=== PATIENT | female | born 1975 | race Hispanic/Latino ===

== ENCOUNTER 2018-03-05 07:58 | Emergency (ER) | payer BC, OTHER ==
--- NOTE | 2018-03-05 09:02 | ED PDOC ---
HPI: SOB/CHF/COPD Time Seen by Provider: 03/05/18 08:11 Chief Complaint (Nursing): Shortness Of Breath Chief Complaint (Provider): Shortness Of Breath History Per: Patient History/Exam Limitations: no limitations Onset/Duration Of Symptoms: Hrs (x 1) Current Symptoms Are (Timing): Still Present Quality: Tightness Additional Complaint(s): 42 year old (ega 28 weeks) female presents to the ED with chest tightness associated with difficulty breathing and a headache since yesterday. Patient reports she has been congested and has intermittent leg swelling since the beginning of her . In the last month, she gets winded very easily and finds it difficult to catch her breath after. The patient also complains of mild vision changes when she is looking at her computer screen and has to wear her glasses more often. She visits her doctor once a month. Recently, she had blood work done which was unremarkable and negative for diabetes. Patient feels as symptoms are making her commute to work difficult and inhibiting her from no rmal activities. Denies fever, cough and phlegm. PMD: non [facility] provider (in [place]) - Risk Factors PE Risk Factors: Pos: Past Medical History Reviewed: Historical Data, Nursing Documentation, Vital Signs Vital Signs: Last Vital Signs Temp 98.3 F 03/05/18 08:17 Pulse 88 03/05/18 08:17 Resp 20 03/05/18 08:23 BP 133/66 03/05/18 08:17 Pulse Ox 100 03/05/18 08:23 - Medical History PMH: Depression - Surgical History Other surgeries: gastric sleeve (3 years ago) - Family History Family History: States: Unknown Family Hx - Allergies Allergies/Adverse Reactions: Allergies Allergy/AdvReac Type Severity Reaction Status Date / Time Penicillins Allergy RASH Verified 03/05/18 08:14 Sulfa (Sulfonamide Allergy RASH Verified 03/05/18 08:14 Antibiotics) Review of Systems ROS Statement: Except As Marked, All Systems Reviewed And Found Negative Cardiovascular: Positive for: Chest Pain (tightness) Respiratory: Positive for: Shortness of Breath, SOB with Exertion. Negative for: Hemoptysis, Sputum Physical Exam - Reviewed Nursing Documentation Reviewed: Yes Vital Signs Reviewed: Yes - Physical Exam Appears: Positive for: Non-toxic, No Acute Distress Head Exam: Positive for: ATRAUMATIC, NORMAL INSPECTION, NORMOCEPHALIC Skin: Positive for: Normal Color, Warm, Dry Eye Exam: Positive for: EOMI, Normal appearance, PERRL Neck: Positive for: Normal, Painless ROM, Supple Cardiovascular/Chest: Positive for: Regular Rate, Rhythm. Negative for: Murmur Respiratory: Positive for: Normal Breath Sounds. Negative for: Respiratory Distress Gastrointestinal/Abdominal: Positive for: Normal Exam, Soft. Negative for: Tenderness Back: Positive for: Normal Inspection. Negative for: L CVA Tenderness, R CVA Tenderness Extremity: Positive for: Normal ROM. Negative for: Deformity Neurologic/Psych: Positive for: Alert, Oriented (x 3). Negative for: Motor/Sensory Deficits - Laboratory Results Result Diagrams: 03/05/18 08:55 03/05/18 08:55 - ECG O2 Sat by Pulse Oximetry: 100 (RA) Pulse Ox Interpretation: Normal Medical Decision Making Medical Decision Makin:54 Impression: shortness of breath Initial Plan: --CMP --CBC --EKG --PTT --Prothrombin --CXR --UA Scribe Attestation: Documented by Melia Prescott, acting as a scribe for Kaila Tafoya MD Provider Scribe Attestation: All medical record entries made by the Scribe were at my direction and personally dictated by me. I have reviewed the chart and agree that the record accurately reflects my personal performance of the history, physical exam, medical decision making, and the department course for this patient. I have also personally directed, reviewed, and agree with the discharge instructions and disposition. patient is feeling better. labs normal. BP stable. Disposition - Clinical Impression Clinical Impression: Fatigue during in third trimester - Patient ED Disposition Is Patient to be Admitted: No Doctor Will See Patient In The: Office Counseled Patient/Family Regarding: Diagnosis, Need For Followup - Disposition Disposition: Routine/Home Disposition Time: 11:10 Condition: STABLE Additional Instructions: Followup with your personal physician. Return to the ER if symptoms are worse or persistent. Instructions: Symptoms Forms: [facility] (Malay), [facility] ED School/Work Excuse - POA Present On Arrival: None
[2018-03-05 09:15] LABS: BASO % 0.3 % (0.0-2.0); EOS % 0.3 % (0.0-4.0); HEMOGLOBIN 10.5 g/dL (12.0-16.0); LYMPH # 1.8 K/uL (1.0-4.3); LYMPH % 15.3 % (20.0-40.0); MEAN CELL VOLUME 72.9 fl (81.0-99.0); MEAN CORPUSCULAR HEMOGLOBIN 23.8 pg (27.0-31.0); MEAN CORPUSCULAR HGB CONC 32.6 g/dL (33.0-37.0); MEAN PLATELET VOLUME 7.6 fl (7.2-11.7); MONO # 0.6 K/uL (0.0-0.8); MONO % 4.7 % (0.0-10.0); NEUT # 9.5 K/uL (1.8-7.0); NEUT % 79.4 % (50.0-75.0); RBC 4.4 Mil/uL (3.80-5.20); RED CELL DISTRIBUTION WIDTH 14.1 % (11.5-14.5); WHITE BLOOD COUNT 11.9 K/uL (4.8-10.8)
[2018-03-05 09:18] LABS: SQUAMOUS EPITHIAL 18 /hpf (0-5); URINE BILIRUBIN NEGATIVE (NEGATIVE); URINE BLOOD NEGATIVE (NEGATIVE); URINE CLARITY CLOUDY (Clear); URINE COLOR YELLOW (YELLOW); URINE GLUCOSE (UA) NEG (Normal); URINE LEUKOCYTE ESTERASE NEG Leu/uL (Negative); URINE PROTEIN NEGATIVE (NEGATIVE); URINE UROBILINOGEN 0.2-1.0 mg/dL (0.2-1.0)
[2018-03-05 09:19] LABS: PROTHROMBIN TIME 11.6 Seconds (9.8-13.1)
[2018-03-05 09:22] LABS: PARTIAL THROMBOPLASTIN TIME 26.2 Seconds (25.6-37.1)
[2018-03-05 09:27] LABS: ALBUMIN 3.4 g/dL (3.5-5.0); ALT/SGPT 20 U/L (9-52); AST/SGOT 19 U/L (14-36); BLOOD UREA NITROGEN 4 mg/dl (7-17); CALCIUM 9.6 mg/dL (8.4-10.2); GFR NON-AFRICAN AMERICAN > 60
[2018-03-05 11:45] VITALS: BP 136/72; PULSE 84; RESP 18; TEMP 97.8; O2SAT 99
--- NOTE | 2018-03-05 12:35 | CARD ---
APPROVED REPORT Date of service: 03/05/2018 EKG Measurement Heart [id number] <Conclusion> Normal sinus rhythm Normal ECG
== END 2018-03-05 11:35 | disposition home or self-care (01) ==
LOC: H.ER 07:58
DX: O26.813 Pregnancy related exhaustion and fatigue, third trimester (principal)

== ENCOUNTER → 2018-05-03 | Emergency (ER) | payer BC, OTHER ==
[2018-05-03 05:13] VITALS: BMI 41.9
[2018-05-03] MEDS: Lactated Ringer's 1,000 ML IV SCH ×2 (05:48→06:20)
[2018-05-03 05:57] LABS: ALBUMIN 3.6 g/dL (3.5-5.0); ALT/SGPT 15 U/L (9-52); AMYLASE 89 U/L (30-110); AST/SGOT 28 U/L (14-36); BLOOD UREA NITROGEN 12 mg/dl (7-17); CALCIUM 8.4 mg/dL (8.4-10.2); GFR NON-AFRICAN AMERICAN > 60; LIPASE 148 U/L (23-300)
[2018-05-03 06:39] LABS: HEMOGLOBIN 11.1 g/dL (12.0-16.0); MEAN CELL VOLUME 68.8 fl (81.0-99.0); MEAN CORPUSCULAR HEMOGLOBIN 22.1 pg (27.0-31.0); MEAN CORPUSCULAR HGB CONC 32.1 g/dL (33.0-37.0); RBC 5.04 Mil/uL (3.80-5.20); RED CELL DISTRIBUTION WIDTH 16.1 % (11.5-14.5); WHITE BLOOD COUNT 17.8 K/uL (4.8-10.8)
--- NOTE | 2018-05-03 09:05 | OBDCSUM ---
Datetime: 05/03/2018 08:56 Discharged to, Provider: Home Follow up at, Provider: private OB Disch Instr Activity: Normal activity Disch Instr Diet: Regular Discharge Time: 05/03/2018 08:57 Follow up in weeks, Provider: sonogram this pm as scheduled;and follow up appt Discharge Diagnosis Prov Other: Nausea/vomiting
--- NOTE | 2018-05-03 09:05 | OBHP ---
Datetime: 05/03/2018 08:31 IP Adm Impression: Term, intrauterine IP Admit Plan: Observation/Evaluation Admit Comment, IP Provider: 42 y/o @37.2wks w/APRYL 1215 c/o 3 episodes of nonbloody emesis in p ast 3 hours. She also c/o nausea _ back cramping/pressure. +FM, denies ctx, loss of fluid, diarrhea, sick contacts, chest discomfort or shortness of breath. OBGYNhx: denies PMH: anxiety; recently prescribed zoloft which she has not started; giardia last year Allergies: PCN-hives, sulfa-since infancy; unknown reaction Meds: PNV, levothyroxine (no hx of thyroid disorder but states it helped with fertility) Famhx: denies Sochx: denies Surgx: gastric sleeve 2014 Gen: obese female sitting upright in bed Cardio: s1 s2, borderline tachy Lungs: cta b/l Abd: Gravid, BS+, nontender Pelvic: 1-2cm dilated A/P: 42 y/o @37.2wks w/APRYL 12/15 c/o 3 episodes of nonbloody emesis in past 3 hours. -IV fluids -Zofran -Continue to monitor -If able to tolerate PO, discharge home Case discussed with Dr. Rivera/Dr. Sterling Alarcon [facility] , PGY-1 Membranes, Provider: Intact Pool Provider: Negative EGA AdmitDate IP: 37.2 Vital Signs Provider: Reviewed IP Chief Complaint: Maternal discomfort Dilatation, Provider: 1-2
[2018-05-03 18:04] VITALS: BP 142/72; PULSE 95; RESP 17; O2SAT 100
== END | disposition home or self-care (01) ==
LOC: H.EROB2 04:35
DX: O21.0 Mild hyperemesis gravidarum (principal); O26.93 Pregnancy related conditions, unspecified, third trimester; R11.0 Nausea; M54.9 Dorsalgia, unspecified; Z3A.37 37 weeks gestation of pregnancy
CPT/HCPCS: 80053; 82150; 83690; 85027; 96360; 96374; 99283; J2405; J7120